=== PATIENT | male | born 1935 | race African-American/Black ===

== ENCOUNTER 2025-03-21 19:54 | Inpatient (IN) | payer OTHER ==
[~2025-03-21] VITALS: Ht 190.5 cm; Wt 99.8 kg
[~2025-03-21 19:54] MED LIST: CEFTRIAXONE 1GM/50ML 50 ML IV SCH
[2025-03-21 20:38] LABS: BASOPHILS % 0.2 % (0.0-2.0); EOSINOPHILS % 0.2 % (0.0-5.0); HEMATOCRIT. 27.7 % (42.0-52.0); HEMOGLOBIN. 8.5 g/dL (14.0-18.0); LYMPHOCYTES % 7.1 % (20.0-50.0); MEAN PLATELET VOLUME 7.3 fl (7.4-10.4); MONOCYTES % 9.4 % (2.0-8.0); NEUTROPHILS % 83.1 % (40.0-76.0); PLATELET 139 x1000/uL (130-400); RED BLOOD CELL COUNT 3.59 mill/uL (4.7-6.1); RED CELL DISTRIBUTION WIDTH 24.3 % (11.6-14.6)
[2025-03-21 20:39] LABS: ADD RBC MORPHOLOGY YES
[2025-03-21 20:50] LABS: CREATININE 0.6 mg/dL (0.6-1.3)
[2025-03-21 20:51] LABS: UREA NITROGEN BLOOD 31 mg/dL (9-23)
[2025-03-21 20:52] LABS: ASPARTATE AMINOTRANSFERASE 13 IU/L (<34)
[2025-03-21 20:53] LABS: BILIRUBIN DIRECT 0.2 mg/dL (<=3.0); BILIRUBIN TOTAL 0.4 mg/dL (0.1-1.0); PROTEIN TOTAL 6.7 g/dL (6.0-8.3); TROPONIN I HIGH SENSITIVITY 32 ng/L (3.0-53)
[2025-03-21 20:58] LABS: PLATELET ESTIMATE NORMAL
[2025-03-21] MEDS: FUROSEMIDE 40MG/4ML VIAL IV ONE (21:28)
[2025-03-21 22:12] LABS: BG BASE EXCESS 12.6 mmol/L (-2.0-3.0); BG CARBOXYHEMOGLOBIN 0.9 % (0.5-1.5); BG DEOXYHEMOGLOBIN 1.7 % (0.0-5.0); BG FLOW(L/min) 3.00 L/min; BG FRACTION INSPIRED OXYGEN 32; BG HCO3 ACT 38.7 mmol/L (21.0-28.0); BG METHEMOGLOBIN 0.3 % (0.5-1.5); BG OXYGEN SATURATION 98.3 % (94.0-98.0); BG OXYHEMOGLOBIN 97.1 % (94.0-98.0); BG PCO2 59.5 mmHg (35.0-48.0); BG PH 7.431 (7.350-7.450); BG PO2 115.8 mmHg (83.0-108.0); BG SAMPLE SITE RIGHT RADIAL; BG TOTAL HEMOGLOBIN 9.5 g/dL (13.5-17.5); BG VENT MODE NASAL CANNULA
[2025-03-21] MEDS: IPRATROPIUM BROMIDE (0.02%) 0.5MG/2.5ML NEB HHN SCH (22:32)
[2025-03-21 22:33] VITALS: PULSE 67; RESP 22; O2SAT 100
[2025-03-21] MEDS: ALBUTEROL (0.083%) 2.5MG/3ML NEB HHN SCH (22:33)
[2025-03-21 23:00] VITALS: PULSE 65; RESP 22; O2SAT 100
[2025-03-21] MEDS ORDERED: GUAIFENESIN 200MG/10ML SUGAR FREE UDC PO PRN (23:30)
[2025-03-21] MEDS ORDERED: ONDANSETRON HCL 4MG/2ML INJ IV PRN (23:30)
[2025-03-21] MEDS ORDERED: IPRATROPIUM/ALBUTEROL 0.5-3(2.5)MG/3ML NEB HHN PRN (23:30)
[2025-03-21] MEDS ORDERED: ACETAMINOPHEN 325MG TABLET PO PRN ×2 (23:30)
[2025-03-21] MEDS ORDERED: CLONIDINE 0.1MG TABLET PO PRN (23:30)
[2025-03-21] MEDS ORDERED: DOCUSATE SODIUM 100MG CAPSULE PO PRN (23:30)
[2025-03-21 23:31] VITALS: PULSE 64; RESP 18; O2SAT 100
[2025-03-21 23:45] VITALS: BP 118/86; PULSE 83; RESP 20; TEMP 36.8; O2SAT 97
[2025-03-22] VITALS (9 sets, daily range): BP systolic 103–134; BP diastolic 56–86; PULSE 58–83; RESP 14–20; TEMP 36.1–36.8072; O2SAT 94–99
[2025-03-22] MEDS ORDERED: DEXTROSE 50% WATER 50ML SYRINGE IV PRN (01:00)
[2025-03-22 01:24] LABS: ASPARTATE AMINOTRANSFERASE 15 IU/L (<34); BILIRUBIN DIRECT 0.2 mg/dL (<=3.0); BILIRUBIN TOTAL 0.5 mg/dL (0.1-1.0); PROTEIN TOTAL 6.7 g/dL (6.0-8.3)
[2025-03-22 02:04] LABS: INR 1.1
[2025-03-22] MEDS: CARBIDOPA/LEVODOPA 25/100MG TABLET GT SCH (03:55)
[2025-03-22] MEDS ORDERED: CEFTRIAXONE 1GM/50ML 50 ML IV SCH (05:00)
[2025-03-22 06:05] LABS: TRIGLYCERIDE 51.0 mg/dL (0-150)
[2025-03-22 06:06] LABS: LDL CHOLESTEROL 54.0 mg/dL (5-100)
[2025-03-22] MEDS: BLOOD SUGAR DIAGNOSTIC STRIP TEST SCH (06:08)
[2025-03-22] MEDS: INSULIN LISPRO 100 UNITS/ML SUBCUT SCH (06:09)
[2025-03-22 06:11] LABS: CREATININE 0.7 mg/dL (0.6-1.3); UREA NITROGEN BLOOD 30 mg/dL (9-23)
[2025-03-22 06:13] LABS: T4 FREE 0.92 ng/dL (0.89-1.76)
[2025-03-22 06:29] LABS: HEMATOCRIT. 27.1 % (42.0-52.0); HEMOGLOBIN. 8.2 g/dL (14.0-18.0); MEAN PLATELET VOLUME 8.5 fl (7.4-10.4); PLATELET 136 x1000/uL (130-400); RED BLOOD CELL COUNT 3.52 mill/uL (4.7-6.1); RED CELL DISTRIBUTION WIDTH 23.6 % (11.6-14.6)
[2025-03-22] MEDS ORDERED: ACETAMINOPHEN 650MG/20.3ML UDC GT PRN ×2 (07:30)
[2025-03-22] MEDS ORDERED: DOCUSATE SODIUM SUGAR FREE 100MG/10ML UDC GT PRN (07:30)
[2025-03-22] MEDS: IPRATROPIUM/ALBUTEROL 0.5-3(2.5)MG/3ML NEB HHN SCH (08:27)
[2025-03-22] MEDS: FUROSEMIDE 40MG/4ML VIAL IVP SCH (11:31)
[2025-03-22] MEDS: FINASTERIDE 5MG TABLET GT SCH (11:32)
[2025-03-22] MEDS: LEVOTHYROXINE SODIUM 25MCG TABLET GT SCH (11:32)
[2025-03-22] MEDS: CEFTRIAXONE 1GM/50ML 50 ML IV SCH (11:56)
[2025-03-22] MEDS ORDERED: ENOXAPARIN 40MG/0.4ML SYR SUBCUT SCH (20:00)
[2025-03-23 06:30] LABS: BAND% 4.0 % (1.0-6.0); LYMPHOCYTES % MANUAL 8.0 % (20.0-50.0); MONOCYTES % MANUAL 9.0 % (2.0-8.0); NEUTROPHILS % MANUAL 79.0 % (45.0-75.0)
[2025-03-23 06:32] LABS: PLATELET ESTIMATE NORMAL
== END 2025-03-22 21:45 | disposition short-term general hospital (02) | DRG 291 ==
LOC: ER 19:54 → 8WST 22:31 → EDBEDREQTM 22:42 → EDBEDREQ 22:42 → ENRESERV 23:00
PROVIDERS: ADMIT Internal Medicine; ATTEND Internal Medicine
DX: I50.43 Acute on chronic combined systolic (congestive) and diastolic (congestive) heart failure (principal); G93.41 Metabolic encephalopathy; J18.9 Pneumonia, unspecified organism; J96.01 Acute respiratory failure with hypoxia; E87.0 Hyperosmolality and hypernatremia; E86.0 Dehydration; L89.90 Pressure ulcer of unspecified site, unspecified stage; N49.2 Inflammatory disorders of scrotum; E03.9 Hypothyroidism, unspecified; G20.A1 Parkinson's disease without dyskinesia, without mention of fluctuations
CPT/HCPCS: 36415; 36600; 71045; 76870; 80048; 80061; 80076; 82040; 82375; 82728; 82805; 82962; 83036; 83605; 83880; 84145; 84439; 84443; 84484; 85025; 85044; 85379; 85651; 86141; 93005; 93970; 93976; 94070; 94640; 94664; 97167; 98960; 99285; A6449; J0696; J1938